=== PATIENT | female | born 1985 | race Hispanic/Latino ===

== ENCOUNTER 2018-03-18 16:31 | Outpatient (CLI) | payer OTHER ==
--- NOTE | 2018-03-18 21:54 | RAD ---
CHEST TWO VIEWS: 03/18/18 Comparison is made with the 08/17/12 study. The heart is normal in size and the lungs are clear. No infiltrate or effusion was seen. Mediastinum appears normal and the trachea is midline. IMPRESSION: No acute findings. POS: HOME
== END 2018-03-18 16:32 | disposition home or self-care (01) ==
LOC: BURRAD 16:31
PROVIDERS: ATTEND Family Medicine
DX: R05 Cough (principal)
CPT/HCPCS: 71046

== ENCOUNTER 2019-12-07 12:26 | Outpatient (CLI) | payer OTHER ==
--- NOTE | 2019-12-07 15:55 | RAD ---
RIGHT HIP TWO VIEWS: 12/07/19 No fracture or joint space narrowing was seen. The articular surfaces are smooth. All adjacent bones showed no acute change. IMPRESSION: No acute finding. POS: HOME
== END 2019-12-07 12:27 | disposition home or self-care (01) ==
LOC: BURRAD 12:26
PROVIDERS: ATTEND Family Medicine
DX: M25.551 Pain in right hip (principal)